=== PATIENT | male | born 1950 | race Caucasian/White ===

== ENCOUNTER 2021-03-06 07:28 | Day surgery (SDC) | payer MEDICARE, OTHER ==
[2021-03-03 09:06] LABS: BASOPHILS % (AUTO) 1 % (0-1); EOSINOPHILS % (AUTO) 4 % (1-7); LYMPHOCYTES % (AUTO) 34 % (22-44); MEAN CORPUSCULAR HEMOGLOBIN 31.8 pg (27.5-34.5); MEAN PLATELET VOLUME 7.5 fL (7.4-10.4); MONOCYTES % (AUTO) 9 % (2-9); NEUTROPHILS % (AUTO) 52 % (42-75); PLATELET COUNT 204 x10^3/uL (130-400); RED BLOOD COUNT 4.18 x10^6/uL (4.38-5.82); RED CELL DISTRIBUTION WIDTH 13.2 % (9.4-14.8)
[2021-03-03 09:07] LABS: MICROSCOPIC NOT IND
[2021-03-03 09:16] LABS: INTERNATIONAL NORMALIZED RATIO 0.98 (0.93-1.1); PROTHROMBIN TIME 10.5 Seconds (9.6-11.5)
[2021-03-03 09:18] LABS: ANION GAP 4 mmol/L (5-15); CALCIUM 8.8 mg/dL (8.5-10.1); CHLORIDE 108 mmol/L (98-107); CREATININE 0.75 mg/dL (0.7-1.3)
[~2021-03-06] VITALS: Ht 177.8 cm; Wt 96.3 kg
[~2021-03-06 07:28] MED LIST: AMLO5TAB4 PO; BACL-19 PO; BIOT10005 PO; CoQ10 PO; FINA5TAB4 PO; FLUO40CA2 PO; MULT-751 PO; ROSU40TA PO; TADA5TAB2 PO; TAMS-11 PO; ZINC50CA PO; ZOLP10TA PO; lidocaine patch TP
[2021-03-06] MEDS ORDERED: LACTATED RINGERS 1,000 ML IV SCH (08:00)
[2021-03-06] MEDS ORDERED: CHLORHEXIDINE 15 ML UDC PO ONE (08:00)
[2021-03-06 08:03] VITALS: BP 147/88
[2021-03-06] MEDS ORDERED: FENTANYL PF 250 MCG/5ML ONE (10:02)
[2021-03-06] MEDS ORDERED: METHOCARBAMOL 1,000 MG in DEXTROSE 5% 100 ML IV PRN (11:00)
[2021-03-06] MEDS ORDERED: ACETAMINOPHEN 325 MG TABLET PO PRN (11:00)
[2021-03-06] MEDS ORDERED: OXYcodone 5 MG/5 ML ORAL.SOL UDC PO PRN (11:00)
[2021-03-06] MEDS ORDERED: LORazepam 2 MG/ML, 1ML IVPush PRN (11:00)
[2021-03-06] MEDS ORDERED: ONDANSETRON 2MG/ML, 2ML IVPush PRN (11:00)
[2021-03-06] MEDS ORDERED: PROMETHAZINE 25 MG/ML, 1ML IVPush PRN (11:00)
[2021-03-06] MEDS ORDERED: FENTANYL PF 100 MCG/2ML IV PRN (11:00)
[2021-03-06] MEDS ORDERED: HALOPERIDOL 5 MG/ML IV PRN (11:00)
[2021-03-06] MEDS ORDERED: LABETALOL 5MG/ML, 20ML IV PRN (11:00)
[2021-03-06] MEDS ORDERED: PROMETHAZINE 25 MG SUPP PR PRN (11:00)
[2021-03-06] MEDS ORDERED: HYDROmorphone 1 MG/ML, 1ML INJ IVPush PRN (11:00)
[2021-03-06] MEDS ORDERED: hydrALAzine 20 MG/ML, 1ML IV PRN (11:00)
[2021-03-06] MEDS ORDERED: PROPOFOL 10 MG/ML, 20ML ONE (11:47)
[2021-03-06] MEDS ORDERED: CEFAZOLIN 1,000 MG ONE (11:47)
[2021-03-06] MEDS ORDERED: DEXAMETHASONE 4 MG/ML, 1ML ONE (11:47)
[2021-03-06] MEDS ORDERED: ONDANSETRON 2MG/ML, 2ML ONE (11:47)
== END 2021-03-06 13:16 | disposition home or self-care (01) ==
LOC: OUT 07:28 → EDSTATUS 10:00 → OUT 13:16
PROVIDERS: ATTEND Student in an Organized Health Care Education/Training Program
DX: N40.1 Benign prostatic hyperplasia with lower urinary tract symptoms (principal); R35.0 Frequency of micturition; R35.1 Nocturia; R39.15 Urgency of urination; R39.12 Poor urinary stream; R33.8 Other retention of urine; I10 Essential (primary) hypertension; Z20.822 Contact with and (suspected) exposure to COVID-19; Z79.01 Long term (current) use of anticoagulants; Z79.899 Other long term (current) drug therapy; Z82.49 Family history of ischemic heart disease and other diseases of the circulatory system
CPT/HCPCS: 36415; 52648; 80048; 81003; 85025; 85610; 87086; 87635; 88300; 93005; J0690; J1100; J2405; J2704; J3010; J7120